=== PATIENT | male | born 1960 | race Caucasian/White ===

== ENCOUNTER 2017-03-20 09:55 | Emergency (ER) | payer OTHER ==
[~2017-03-20] VITALS: Ht 152.4 cm; Wt 42.6 kg
[2017-03-20 09:59] VITALS: BP 118/72
== END 2017-03-20 10:36 | disposition home or self-care (01) ==
LOC: ER 09:56
DX: B02.9 Zoster without complications (principal); I10 Essential (primary) hypertension; G35 Multiple sclerosis; F17.200 Nicotine dependence, unspecified, uncomplicated; Z88.5 Allergy status to narcotic agent
CPT/HCPCS: 99281; A4606; Z7610; Z7502

== ENCOUNTER 2017-08-26 09:58 | Emergency (ER) | payer OTHER ==
[~2017-08-26] VITALS: Ht 152.4 cm; Wt 40.8 kg
[2017-08-26] MEDS ORDERED: HYDROCODONE/APAP 5/325MG 1 EACH TABLET ONE (10:29)
[2017-08-26] MEDS ORDERED: HYDROCODONE/APAP 5/325MG 1 EACH TABLET PO ONE (10:30)
--- NOTE | 2017-08-26 11:49 | NUR ---
Patient discharged to home in stable condition. Written and verbal after care instructions given. Patient verbalizes understanding of instruction.
[2017-08-26 11:54] VITALS: BP 128/75
== END 2017-08-26 11:55 | disposition home or self-care (01) ==
LOC: ER 10:02
DX: S42.001A Fracture of unspecified part of right clavicle, initial encounter for closed fracture (principal); I10 Essential (primary) hypertension; F17.200 Nicotine dependence, unspecified, uncomplicated; Z88.5 Allergy status to narcotic agent; W08.XXXA Fall from other furniture, initial encounter; Y93.89 Activity, other specified; Y92.89 Other specified places as the place of occurrence of the external cause; Y99.8 Other external cause status
CPT/HCPCS: 73000; 73030; 99284; A4606; Z7610

== ENCOUNTER 2019-08-29 10:34 | Emergency (ER) | payer OTHER ==
[~2019-08-29] VITALS: Ht 152.4 cm; Wt 39.5 kg
[2019-08-29 10:38] VITALS: BP 145/83
--- NOTE | 2019-08-29 11:03 | NUR ---
Patient discharged to home in stable condition. Written and verbal after care instructions given. Patient verbalizes understanding of instruction.
== END 2019-08-29 11:04 | disposition home or self-care (01) ==
LOC: ER 10:38
DX: J32.9 Chronic sinusitis, unspecified (principal); F17.200 Nicotine dependence, unspecified, uncomplicated; I10 Essential (primary) hypertension; Z88.5 Allergy status to narcotic agent